=== PATIENT | male | born 1970 | race Caucasian/White ===

== ENCOUNTER 2019-11-05 09:43 | Emergency (ER) | payer OTHER ==
[2019-11-05] MEDS ORDERED: TETRACAINE HCL 0.5% OPH SOLN 0.6 ML DROPERETTE OU ONE (09:55)
[2019-11-05] MEDS ORDERED: TETRACAINE HCL 0.5% OPH SOLN 4 ML ONE (09:57)
[2019-11-05] MEDS ORDERED: TETRACAINE HCL 0.5% OPH SOLN 4 ML OU ONE (10:00)
--- NOTE | 2019-11-05 10:33 | ER Document Report ---
ED Eye Complaint - General Chief Complaint: Chemical Exposure in Eye Stated Complaint: CHEMICAL EXPOSURE Time Seen by Provider: 11/05/19 10:02 Mode of Arrival: Ambulatory Information source: Patient Notes: 49-year-old male presents to the emergency department with a history of getting hydraulic fluid in his eyes today at work. States that they were cleaning a holes with a sudden splash of hydraulic fluid got into both eyes. He notes that the left eye seemed to get more than the right. He complains of a burning irritation in the eyes bilaterally denies a change in vision. He has flush his eyes prior to coming to the emergency department use the eyewash station while here at the emergency department and is worse his eyes out. He states they feel much better, however, continues to sting. - Related Data Allergies/Adverse Reactions: No Known Allergies Allergy (Verified 11/05/19 09:55) Past Medical History - Social History Smoking Status: Current Every Day Smoker Family History: Reviewed & Not Pertinent Patient has homicidal ideation: No - Past Medical History Cardiac Medical History: Reports: Hx Hypertension Review of Systems - Review of Systems Notes: Constitutional: Negative for fever. HENT: Negative for sore throat. Eyes: + Hydraulic fluid to eyes, + pain Cardiovascular: Negative for chest pain. Respiratory: Negative for shortness of breath. Gastrointestinal: Negative for abdominal pain, vomiting or diarrhea. Genitourinary: Negative for dysuria. Musculoskeletal: Negative for back pain. Skin: Negative for rash. Neurological: Negative for headaches, weakness or numbness. 10 point ROS negative except as marked above and in HPI. Physical Exam - Vital signs Vitals: Temp Pulse Resp BP Pulse Ox 98.3 F 81 16 171/97 H 94 11/05/19 10:01 11/05/19 10:01 11/05/19 10:01 11/05/19 10:01 11/05/19 10:01 - Notes Notes: PHYSICAL EXAMINATION: Physical Exam: General: Well-nourished well-developed 49-year-old man in no acute distress HEENT: NC/AT, pupils equal round and reactive to light, MM moist,nares clear, left eye with conjunctiva injected and erythematous, right with mild injection of the conjunctiva, fluorescein stain with 2 areas of uptake left of the pupil and below the pupil, right with a area of generalized irritation., airway patent Neck: supple, no adenopathy, no masses. Good range of motion Lungs: clear, no wheezing, no rales no rhonchi CVS: Regular rate and rhythm no murmur gallop or rub Abdomen: Soft, active, nontender, no masses, no hepatosplenomegaly Ext: No edema, clubbing or cyanosis. Neuro: Alert and responsive, moving all 4 extremities on command, cranial nerves intact, no focal findings Skin: Intact no open lesions, no rash PSYCH: Normal mood, normal affect. Course - Vital Signs Vital signs: Temp Pulse Resp BP Pulse Ox 97.5 F 73 14 173/92 H 97 11/05/19 11:07 11/05/19 11:07 11/05/19 11:07 11/05/19 11:07 11/05/19 11:07 Discharge - Discharge Clinical Impression: Chemical injury of right eye, Corneal abrasion, left Chemical injury of left conjunctiva Qualifiers: Encounter type: initial encounter Qualified Code(s): T26.62XA - Corrosion of cornea and conjunctival sac, left eye, initial encounter Condition: Good Disposition: HOME, SELF-CARE Instructions: Corneal Abrasion ([facility]) Additional Instructions: Patient was seen in the emergency department with hydraulic fluid in the eyes bilaterally, left greater than right, irritation noted, uptake of floor seen left eye 2 separate areas. I explained to the patient that we will be treating him with antibiotic drops and analgesic drops. He is to follow-up with the work related injury program at work and referral for an official ophthalmology evaluation if he is not resolved in 24 hours. Patient acknowledges understanding of this plan. HOME CARE INSTRUCTIONS & INFORMATION: Thank you for choosing us for your medical needs. We hope you're satisfied with the care you received. After you leave, you must properly care for your problem and, at the same time, observe its progress. Any condition can change. Some illnesses can change rapidly over hours or days. If your condition worsens, return to the Emergency Department or see your physician promptly. ABOUT YOUR X-RAYS AND EKG'S: If you had an EKG or X-rays taken, they have been read by the Emergency Physician. The X-rays and EKG's will also be read by a Radiologist or Sampler Tester within 24 hours. If discrepancies are noted, you will be notified by telephone. Please be certain the ED has a correct telephone number & address where you can be reached. Also, realize that some fractures or abnormalities do not show up on initial X-rays. If your symptoms continue, see your physician. ABOUT YOUR LABORATORY TEST: If you had laboratory tests, the results have been reviewed by the Emergency Physician. Some test results (for example cultures) may not be available for several days. You will be contacted if any test result shows you need additional treatment. Please be certain the ED has a correct telephone number and address where you can be reached. ABOUT YOUR MEDICATIONS: You will receive instructions on how to take your medicine on the prescription label you receive. Additional information may be provided by the Pharmacy. If you have questions afterwards, call the ED for clarification or further instructions. Some prescribed medications may cause drowsiness. Do not perform tasks such as driving a car or operating machinery without consulting your Pharmacist. If you feel you need a refill of pain medication, your condition will need re-evaluation. Please do not call for a refill of any medication. ABOUT YOUR SIGNATURE: Signature of this document acknowledges to followin. Understanding that you received emergency treatment and that you may be released before al medical problems are known or treated. Please be certain the ED has a correct phone number & address where you can be reached. 2. Acknowledgement that you will arrange for follow-up care as recommended. 3. Authorization for the Emergency Physician to provide information to your follow-up Physician in order to maximize your care. AT ANY TIME, IF YOUR SYMPTOMS CHANGE SIGNIFICANTLY OR WORSEN OR YOU DEVELOP NEW SYMPTOMS, RETURN TO THE EMERGENCY DEPARTMENT IMMEDIATELY FOR RE-EVALUATION. OUR GOAL IS TO PROVIDE EXCELLENT MEDICAL CARE! WE HOPE THAT WE HAVE MET YOUR EXPECTATIONS DURING YOUR EMERGENCY DEPARTMENT VISIT AND THAT YOU FEEL YOU HAVE RECEIVED EXCELLENT CARE! Prescriptions: Ketorolac Tromethamine 0.45% [Acuvail 0.45% Oph Soln 0.4 ml/Dropperette] 1 drop OU QID PRN 2 Days #5 bottle PRN Reason: Gentamicin Sulfate [Garamycin 0.3% Oph Soln (ER Disp)] 1 drop OU TID #1 bottle Forms: Return to Work
[2019-11-05 11:21] VITALS: BP 173/92
== END 2019-11-05 11:10 | disposition home or self-care (01) ==
LOC: ER 09:43
DX: T26.62XA Corrosion of cornea and conjunctival sac, left eye, initial encounter (principal); H57.13 Ocular pain, bilateral; Z77.098 Contact with and (suspected) exposure to other hazardous, chiefly nonmedicinal, chemicals; X58.XXXA Exposure to other specified factors, initial encounter; F17.200 Nicotine dependence, unspecified, uncomplicated; I10 Essential (primary) hypertension
CPT/HCPCS: 99283; J3490